=== PATIENT | female | born 1980 | race Caucasian/White ===

== ENCOUNTER 2019-09-12 15:59 | Outpatient (CLI) | payer OTHER, SELFPAY ==
--- NOTE | ~2019-09-12 | US_ITS ---
EXAMINATION: US pelvic complete w TV DATE: 09/12/2019 16:45 INDICATION: Abnormal uterine bleeding TECHNIQUE: Multiple transabdominal and endovaginal sonographic images of the pelvis were obtained. COMPARISON: None. FINDINGS: The uterus measures 10.2 x 4.4 x 4.9 cm. The endometrial complex measures 9 mm. The right o vary is not visualized however no right adnexal abnormality is seen. The left ovary measures 3.6 x 2. 4 x 3.5 cm. There is normal vascular flow in the left ovary. There is no free fluid in the pelvis. IMPRESSION: 1. No sonographic correlate for the patient's symptoms. Reviewed, dictated and finalized at location A.
== END 2019-09-12 16:00 | disposition home or self-care (01) ==
PROVIDERS: PCP Nurse Practitioner Adult Health; Visit Provider Nurse Practitioner
DX: N93.8 Other specified abnormal uterine and vaginal bleeding (principal)
CPT/HCPCS: 76830; 76856

== ENCOUNTER 2020-09-15 12:53 | Outpatient (CLI) | payer OTHER, SELFPAY ==
--- NOTE | ~2020-09-15 | US_ITS ---
EXAMINATION: US pelvic complete EXAM DATE: 09/15/2020 13:42 INDICATION: Abnormal uterine bleeding. TECHNIQUE: Pelvic transabdominal sonogram was performed. There are multiple grayscale and Doppler im ages available for interpretation. Comparison is made to prior examination from 09/12/2019. FINDINGS: Uterus measures 9.8 x 4.8 x 4.5 cm, and is morphologically normal. Endometrial stripe paramjit sures 11 mm, within normal limits. There is no free pelvic fluid. Right adnexa: The ovary measures 2.6 x 1.4 x 2.1 cm and is morphologically normal. Ovarian vascular f low confirmed. Left adnexa: The ovary measures 2.5 x 1.2 x 1.8 cm and is morphologically normal. Ovarian vascular fl ow confirmed. IMPRESSION: 1. Unremarkable pelvic ultrasound exam. Reviewed, dictated and finalized at location A.
== END 2020-09-15 12:54 ==
LOC: MICIMG 12:54
PROVIDERS: Visit Provider Nurse Practitioner
DX: N93.8 Other specified abnormal uterine and vaginal bleeding (principal)
CPT/HCPCS: 76856

== ENCOUNTER 2020-09-15 13:34 | Outpatient (CLI) | payer OTHER, SELFPAY ==
[2020-09-15 14:14] LABS: Hematocrit 41.5 % (37.0-47.0); Hemoglobin 13.5 g/dL (12.0-15.0); Mean Corpuscular HGB Conc 32.5 g/dl (32-36); Mean Corpuscular Hemoglobin 27.9 pg (26-34); Mean Corpuscular Volume 85.7 fl (80-100); Mean Platelet Volume 10.1 fl (7.4-10.4); Platelet Count Result 241 k/mm3 (150-375); Red Blood Count 4.84 M/mm3 (4.2-5.4); Red Cell Distribution Width 13.8 % (11.5-14.5); White Blood Count 5.9 K/mm3 (4.5-10.0)
[2020-09-15 14:30] LABS: Hemoglobin A1C 4.8 % (<5.7)
[2020-09-15 14:43] LABS: Beta HCG Quantitative < 2.39 mIU/ML
[2020-09-15 14:57] LABS: Thyroid Stimulating Hormone 0.896 uIU/mL (0.465-4.680)
[2020-09-15 17:48] LABS: Free T4 Free Thyroxine 1.18 ng/mL (0.78-2.19)
== END 2020-09-15 13:35 | disposition home or self-care (01) ==
PROVIDERS: Visit Provider Nurse Practitioner
DX: N93.8 Other specified abnormal uterine and vaginal bleeding (principal); N92.0 Excessive and frequent menstruation with regular cycle
CPT/HCPCS: 36415; 83036; 84439; 84443; 84702; 85027

== ENCOUNTER 2022-02-24 18:44 | Emergency (ER) | payer OTHER, SELFPAY ==
[2022-02-24 19:07] VITALS: BP 119/72; PULSE 77; RESP 18; TEMP 36; O2SAT 100
--- NOTE | 2022-02-24 19:41 | ED.URI ---
HPI - URI/Sore Throat General Chief Complaint: Upper Respiratory Infection Stated Complaint: Congestion,Cough Source: patient Mode of arrival: ambulatory History of Present Illness HPI Narrative: This is a 41-year-old female who presented to our urgent care with complaints cough with congestion and runny nose with greenish secretion, auditory wheezing that she has been experiencing since Monday. Patient notes that she has, contact with family members that has tested positive for RSV she also notes that her has a sinus infection. The patient denies SOB, CP, palpitation, extremity numbness, lightheadedness, dizziness, constipation, diarrhea, chills, or fever. Related Data Allergies Allergy/AdvReac Type Severity Reaction Status Date / Time No Known Allergies Allergy Verified 02/24/22 19:06 Review of Systems Review of Systems: A 14 organ system Review of Systems was performed and pertinent positives included in the HPI, otherwise remaining ROS is negative. Exam Narrative: GENERAL: This is a well-nourished, well-developed patient, in no apparent distress. HEAD: normocephalic, atraumatic. EYES: PERRL. Sclera clear/white. Vision is grossly intact. EARS: External ears normal, auditory canals clear and without drainage, TMs normal without perforation. Hearing grossly intact. NOSE: External nose normal with no obvious nasal discharge, nares without redness, no rhinorrhea. THROAT: Mucous membranes moist, posterior pharynx clear. NECK: Neck supple, non-tender without lymphadenopathy, masses or thyromegaly. CARDIOVASCULAR: Regular rate and rhythm without murmurs, gallops, or rubs. RESPIRATORY: Clear to auscultation. Breath sounds equal bilaterally. No wheezes, rales, or rhonchi. GASTROINTESTINAL: Abdomen soft, non-tender, nondistended. Bowel sounds are active. No hepato-splenomegaly, or palpable masses. No guarding. SKIN: warm, intact with no suspicious lesions or rash, good texture and turgor. NEURO: awake, alert, and oriented to person, place and time. There were no obvious focal neurologic abnormalities. EXTREMITIES: Normal range of motion. No edema. No calf tenderness. Course Course Emergency Course: Patient will be treated for viral illness she will go home with Tessalon Perles, Flonase, albuterol, and guaifenesin Level of Care: Express Care Visit Vital Signs Vital signs: Vital Signs Temperature 96.8 F L 02/24/22 19:07 Pulse Rate 77 02/24/22 19:07 Respiratory Rate 18 02/24/22 19:07 Blood Pressure 119/72 02/24/22 19:07 Pulse Oximetry 100 02/24/22 19:07 Oxygen Delivery Room Air 02/24/22 19:07 Temperature 96.8 F L 02/24/22 19:07 Pulse Rate 77 02/24/22 19:07 Respiratory Rate 18 02/24/22 19:07 Blood Pressure 119/72 02/24/22 19:07 Pulse Oximetry 100 02/24/22 19:07 Oxygen Delivery Room Air 02/24/22 19:07 MDM - URI/Sore Throat Differential Diagnosis Differential diagnosis: Likely sinusitis, viral infection and influenza Discharge Plan Discharge Clinical Impression: Viral infection Patient Disposition: Home, Self-Care Condition: Stable Instructions: Antibiotic Form, Viral Syndrome (ED) Additional Instructions: This is a viral illness that can last 5-12 days. Fever should start to resolve after 5 days. However your symptoms can last last up to 2 weeks. This will have to run its course. Treatment is aimed toward your specific symptoms How to prevent transmission of illness: Cover your mouth when you sneeze or cough. Cough into a tissue or the bend of your arm. If you use a tissue, throw it away immediately and wash your hands. -Clean shared items with a germ-killing immersion metal cleaner. Clean table surfaces, doorknobs, and light switches. Do not share towels, silverware, and dishes with people who are sick. Wash bed sheets, towels, silverware, and dishes with soap and water. -Wear a mask over your mouth and nose if you are sick. The face mask may help protect others from
== END 2022-02-24 19:42 | disposition home or self-care (01) ==
PROVIDERS: Emergency Provider Nurse Practitioner
DX: B34.9 Viral infection, unspecified (principal)
CPT/HCPCS: 99213; G0463

== ENCOUNTER 2022-12-14 07:45 | Outpatient (CLI) | payer OTHER, SELFPAY ==
--- NOTE | ~2022-12-14 | MM_ITS ---
EXAMINATION: MM screening jessica BI w alma delia HISTORY: Screening mammogram TECHNIQUE: Craniocaudal and mediolateral oblique 3-D tomosynthesis images were obtained and synthetic 2-D images were generated. CAD analysis was submitted and interpreted. COMPARISON: No prior mammogram is available for comparison at this institution. BREAST PARENCHYMAL COMPOSITION: There are scattered areas of fibroglandular density. FINDINGS: There is no evidence of suspicious mass, calcification, or architectural distortion to sugg est malignancy in either breast. There has been no suspicious interval change. IMPRESSION: 1. No mammographic evidence of malignancy. 2. Recommend routine screening mammography in one year. BI-RADS Category 1: Negative Reviewed, dictated and finalized at location A.
--- NOTE | ~2022-12-14 | XR_ITS ---
EXAMINATION: XR foot RT min 3V DATE: 12/14/2022 08:38 INDICATION: Right foot pain. TECHNIQUE: 4 views of right foot were obtained. COMPARISON: None. FINDINGS: Bone alignment is normal. No fracture. Joint spaces are normal. There is an enthesophyte at plantar aspect of calcaneal tuberosity. IMPRESSION: 1. No fracture. Reviewed, dictated and finalized at location E. IMPRESSION: 1. No fracture.
== END 2022-12-14 07:46 | disposition home or self-care (01) ==
PROVIDERS: PCP Family Medicine; Visit Provider Obstetrics & Gynecology Gynecology
DX: Z12.31 Encounter for screening mammogram for malignant neoplasm of breast (principal); M79.673 Pain in unspecified foot
CPT/HCPCS: 73630; 77063; 77067

== ENCOUNTER 2023-04-20 08:49 | Emergency (ER) | payer OTHER, SELFPAY ==
--- NOTE | 2023-04-20 08:59 | ED.GENADULT ---
HPI - General Adult General Chief complaint: Upper Respiratory Infection Stated complaint: Headache, Congestion, Earach, Jaw Pain, Lethargic Source: patient, RN notes reviewed and old records reviewed Mode of arrival: ambulatory Limitations: no limitations History of Present Illness HPI narrative: 42-year-old female presents to [facility] with complaints sinus drainage, sinus congestion, bilateral ear pressure, facial pain, and slight dry cough that started Monday. Patient has used Mucinex nasal spray 1 time with some relief. Patient denies chest pain, shortness of breath, dizziness, weakness, fever, myalgia. MD complaint: congestion Onset (ago): day(s) (2) Radiation: non-radiation Severity: mild Pain Consistency: intermittent Relieving factors: medication Exacerbating factors: none Associated symptoms: cough Treatments prior to arrival: other ( Mucinex nasal spray) Related Data Home Medications Medication Instructions Recorded Confirmed No Home Medications 04/20/23 04/20/23 Allergies Allergy/AdvReac Type Severity Reaction Status Date / Time No Known Allergies Allergy Verified 02/01/23 16:13 Review of Systems Constitutional: Constitutional: Reports no additional constitutional complaints, Denies body ache(s), Denies chills, Denies fatigue, Denies fever(s) and Denies headache(s) Eyes: Eyes: Reports no additional eye complaints and Denies blurry vision ENT: Reports system reviewed and no additional complaints, except as documented, Denies vertigo, Denies dizziness, Denies ear discharge, Reports otalgia, Denies facial pain, Denies headache(s), Reports nasal congestion, Reports nasal discharge, Denies sinus pain, Reports sinus pressure and Denies sore throat Cardiovascular: Cardiovascular: Reports no additional cardiovascular complaints, Denies chest pain, Denies chest pain at rest, Denies rapid heart rate and Denies dyspnea Respiratory: Respiratory: Reports no additional respiratory complaints, Denies chest congestion, Reports cough, Denies pain on inspiration, Denies pain with cough and Denies dyspnea Gastrointestinal: Gastrointestinal: Denies abdominal pain, Denies diarrhea, Denies nausea and Denies vomiting Integumentary/Breasts: Skin/Breast: Denies rash Neurologic: Reports system reviewed and no additional complaints, except as documented, Denies vertigo, Denies dizziness and Denies headache(s) Endocrine: Endocrine: Denies fatigue PMF Past Medical History Medical History Allergies Surgical History Surgical History History of endometrial ablation Family History Family History Father Hypertension Daughter Depression Anxiety Social History Social History Smoking status: Never smoker Second hand tobacco smoke exposure: No Alcohol intake: never Substance use: never Substance use type: does not use Lack of Transportation: No Lack of Food: Never True Current Housing: I Have Housing Concerned About Future Housing: No Difficulty Paying Gas/Electric Bills: No Difficulty Paying for Meds: No Currently Unemployed: No Education: Bachelor's Degree Difficulty w/ Childcare or Family Care: No Living arrangements: with family Occupation/Education: occupation Gender identity (if verbalized by the patient): Female Spiritual care concerns: No Agree to blood products: Yes Comments At the time of my signature, I reviewed and agree with the nursing past medical, surgical, social, and family history. There is no relevant family history pertinent to the patient complaint. Exam Const: General: cooperative, healthy appearing, no acute distress and well nourished Nutritional Appearance: well nourished Orientation/consciousness: patient oriented x3 Pate
[2023-04-20 09:01] VITALS: BP 127/75; PULSE 70; RESP 18; TEMP 36.5; O2SAT 98
== END 2023-04-20 09:24 | disposition home or self-care (01) ==
PROVIDERS: Emergency Provider Registered Nurse; PCP Family Medicine
DX: U07.1 COVID-19 (principal)
CPT/HCPCS: 87426; 87804; 99213; G0463

== ENCOUNTER 2024-04-23 11:07 | Emergency (ER) | payer OTHER, SELFPAY ==
--- NOTE | 2024-04-23 11:22 | ED_ITS ---
HPI - URI/Sore Throat General Chief Complaint: Upper Respiratory Infection Stated Complaint: SORE THROAT Time Seen by Provider: 04/23/24 12:26 Source: patient, RN notes reviewed and old records reviewed Mode of arrival: ambulatory Limitations: no limitations History of Present Illness HPI Narrative: patient who works as a teacher, many sick contacts at school, presents with complaints of body aches, headache, sore throat. She denies any fever, chills, sweats. She does report that she is more tired than normal. She is able to manage own secretions, no drooling or stridor. She has been taking [id number] medication for her symptoms with moderate relief Related Data Allergies Allergy/AdvReac Type Severity Reaction Status Date / Time No Known Allergies Allergy Verified 04/23/24 11:59 Review of Systems Review of Systems: All systems reviewed & are unremarkable except as noted in HPI and below Constitutional: Constitutional: Reports no additional constitutional complaints, Reports body ache(s), Reports fever(s), Reports headache(s) and Reports lethargy ENT: Reports system reviewed and no additional complaints, except as documented and Reports sore throat Cardiovascular: Cardiovascular: Reports no additional cardiovascular complaints Respiratory: Respiratory: Reports no additional respiratory complaints Gastrointestinal: Gastrointestinal: Reports no additional gastrointestinal complaints PMFSH Past Medical History Medical History Allergies Surgical History Surgical History History of endometrial ablation Family History Family History Father Hypertension Daughter Depression Anxiety Social History Social History Smoking status: Never smoker Second hand tobacco smoke exposure: No Alcohol intake: never Substance use: never Substance use type: does not use Lack of Transportation: No Lack of Food: Never True Current Housing: I Have Housing Concerned About Future Housing: No Difficulty Paying Gas/Electric Bills: No Difficulty Paying for Meds: No Currently Unemployed: No Education: Bachelor's Degree Difficulty w/ Childcare or Family Care: No Living arrangements: with family Occupation/Education: occupation Gender identity (if verbalized by the patient): Female Spiritual care concerns: No Agree to blood products: Yes Comments At the time of my signature, I reviewed and agree with the nursing past medical, surgical, social, and family history. There is no relevant family history pertinent to the patient complaint. Exam Const: General: cooperative, no acute distress, alert and awake Orientation/consciousness: oriented to person, oriented to place and oriented to time HENMT: Head: normal to inspection Ears: TM's normal bilaterally Mouth: Yes moist mucous membranes Throat: abnormal tonsil bilateral erythema, exudates and hypertrophy 2+ and posterior oropharynx abnormal erythema Resp: Effort & Inspection: normal respiratory effort and able to speak in complete sentences Auscultation: clear to auscultation bilaterally, no crackles, no rales, no rhonchi and no wheezes Cardio: Palpation: normal PMI Rate: regular rate Rhythm: regular rhythm Heart sounds: S1 normal heart sound present and S2 normal heart sound present Neuro: General: oriented to person, oriented to place and oriented to time Cranial nerves: Yes CN's II-XII intact bilaterally Psych: Appearance: grossly normal Thought process: Normal thought process present Insight: Good insight present (Psych) Judgement: Good judgement present (Psych) Course Course Level of Care: Express Care Visit Vital Signs Vital signs: Reviewed MDM - URI/Sore Throat MDM Narrative Medical decision making narrative: positive rapid strep. Patient nontoxic appearing, stable for discharge home on p.o. antibiotic therapy. Discharge instructions reviewed with patient, as well as provided in writing per nursing staff. The instructions also include specific and strict return/GO TO THE ER as well as f/u information. All questions have been answered, and the patient deny any further questions with discharge and discharge plan. Some parts of this dictation were generated by voice recognition software and may contain typographical and/or grammatical inaccuracies. Differential Diagnosis Differential diagnosis: Likely upper respiratory infection, otitis media, viral infection, influenza and pharyngitis Medical Records Attestation: I reviewed the patient's medical records. Lab Data Attestation: I reviewed the patient's lab results. Discharge Plan Discharge Clinical Impression: Strep pharyngitis Patient Disposition: Home, Self-Care Condition: Stable Instructions: Antibiotic Form, Pharyngitis (ED) Additional Instructions: Take medications as prescribed. Follow with primary care provider. Emergency department for new or worse symptoms Patient Language: Kinyarwanda Prescriptions: New penicillin V potassium 500 mg tablet 500 mg PO Q12H 10 Days Qty: 20 0RF No Action phentermine 30 mg capsule 30 mg PO DAILY Qty: 30 0RF Rx Instructions: must administer 2 hours after breakfast Follow-up/Referrals: Michelle Matos MD [Primary Care Provider] - 2 Weeks Stand Alone Forms: Work/School Release IP Time of Disposition: 12:31
[2024-04-23 11:23] VITALS: BP 113/75; PULSE 76; RESP 18; TEMP 36.4; O2SAT 99
[2024-04-23 11:26] LABS: EDSTREPNEGPOS1 Positive (Negative)
== END 2024-04-23 12:39 | disposition home or self-care (01) ==
PROVIDERS: Emergency Provider Nurse Practitioner Family; PCP Family Medicine
DX: J02.0 Streptococcal pharyngitis (principal)
CPT/HCPCS: 87880; 99213; G0463

== ENCOUNTER 2024-10-06 15:17 | Emergency (ER) | payer OTHER, SELFPAY ==
[2024-10-06 15:25] VITALS: BP 131/81; PULSE 76; RESP 18; TEMP 36.3; O2SAT 100
--- NOTE | 2024-10-06 16:34 | ED_ITS ---
HPI - Headache General Chief Complaint: Headache Stated Complaint: dizzy Patient presents to Express Care with complaints of nasal congestion, nasal drainage, headaches that have been present for about 3 weeks. Patient also noted symptoms of dizziness. Noted when lying in bed this is more prominent especially when rolling to left side does feel like the room is spinning and also causes nausea. No history of symptoms like this but does note a history of like symptoms. Patient has been using some [id number] medications for the allergy like symptoms with minimal relief. Denies chest pain, palpitations, shortness of breath, ear pain, sore throat, vomiting, or diarrhea. Related Data Allergies Allergy/AdvReac Type Severity Reaction Status Date / Time No Known Allergies Allergy Verified 10/06/24 15:43 Review of Systems Constitutional: Constitutional: Reports as per HPI, Denies chills, Reports fatigue, Denies fever(s) and Denies weakness Eyes: Eyes: Reports no additional eye complaints ENT: Reports as per HPI, Reports vertigo, Reports dizziness, Reports nasal congestion and Denies sore throat Cardiovascular: Cardiovascular: Reports as per HPI, Denies chest pain, Denies rapid heart rate, Denies radiating jaw, neck or arm pain and Denies slow heart rate Respiratory: Respiratory: Reports as per HPI, Denies chest congestion, Reports cough, Denies dyspnea and Denies wheezing Gastrointestinal: Gastrointestinal: Reports as per HPI, Denies diarrhea, Reports nausea and Denies vomiting Genitourinary: Genitourinary: Reports no additional female genitourinary complaints Musculoskeletal: Musculoskeletal: Reports no additional musculoskeletal complaints Integumentary/Breasts: Skin/Breast: Reports as per HPI, Denies erythema and Denies rash Neurologic: Reports as per HPI, Reports vertigo, Reports dizziness, Reports headache(s), Denies focal weakness, Denies numbness and Denies weakness Psychiatric: Psychiatric: Reports no additional psychiatric complaints Endocrine: Endocrine: Reports no additional endocrine complaints Hematologic/Lymphatic: Hematologic/Lymphatic: Reports no additional hematologic/lymphatic complaints Allergic/Immunologic: Allergic/Immunologic: Reports as per HPI Comments: Seasonal allergies PMFSH Past Medical History Medical History Allergies Surgical History Surgical History History of endometrial ablation Family History Family History Father Hypertension Daughter Depression Anxiety Social History Social History Smoking status: Never smoker Second hand tobacco smoke exposure: No Alcohol intake: never Substance use: never Substance use type: does not use Lack of Transportation: No Lack of Food: Never True Current Housing: I Have Housing Concerned About Future Housing: No Difficulty Paying Gas/Electric Bills: No Difficulty Paying for Meds: No Currently Unemployed: No Education: Bachelor's Degree Difficulty w/ Childcare or Family Care: No Living arrangements: with family Occupation/Education: occupation Gender identity (if verbalized by the patient): Female Spiritual care concerns: No Agree to blood products: Yes Exam Const: General: healthy appearing and no acute distress Nutritional Appearance: well nourished Orientation/consciousness: patient oriented x3 Limitations: no limitations HENMT: Head: normal to inspection Ears: external ears normal and TM abnormal bulging, dull, erythematous and with fluid behind the TM Face/Nose/Sinus: Normal external nose present Face and sinus: normal facial exam and sinus tenderness ethmoid and maxillary Mouth: Yes Normal oral and palatal mucosa present, Yes lip normal and Yes moist mucous membranes abnormal Throat: posterior oropharynx abnormal (erythema noted) Eyes: Conjunctivae: conjunctivae normal Pupils: Equal, round and reactive pupils present EOM: EOMs intact bilaterally Direct Ophthalmoscopy: no photophobia Other: some minimal dizziness noted with EOM Neck: Neck: no lymphadenopathy Resp: Effort & Inspection: normal respiratory effort Auscultation: clear to auscultation bilaterally Cardio: Rate: regular rate Rhythm: regular rhythm Skin: General skin exam: normal color Rashes: no rashes Wounds: no wounds Neuro: General: patient oriented x3, no meningeal signs, no focal motor deficits and CN's II-XI intact bilaterally Speech: normal speech Gait exam (Neuro): Normal gait present Psych: Mental Status: mental status grossly normal Affect: normal affect Attitude: cooperative Course Course Level of Care: Express Care Visit Vital Signs Vital signs: Vital Signs Temperature 97.3 F L 10/06/24 15:25 Pulse Rate 76 10/06/24 15:25 Respiratory Rate 18 10/06/24 15:25 Blood Pressure 131/81 10/06/24 15:25 Pulse Oximetry 100 10/06/24 15:25 Oxygen Delivery Room Air 10/06/24 15:25 Temperature 97.3 F L 10/06/24 15:25 Pulse Rate 76 10/06/24 15:25 Respiratory Rate 18 10/06/24 15:25 Blood Pressure 131/81 10/06/24 15:25 Pulse Oximetry 100 10/06/24 15:25 Oxygen Delivery Room Air 10/06/24 15:25 MDM - Headache MDM Narrative Medical decision making narrative: given length times sinus infection likely to cause benign vertigo. Educated patient on Ken maneuvers in clinic and medications to take for symptoms. Educated patient on signs and symptoms that would need ER follow-up. Discharge instructions reviewed with patient, as well as provided in writing per nursing staff. The instructions also include specific and strict return/GO TO THE ER as well as f/u information. All questions have been answered, and the patient deny any further questions with discharge and discharge plan. Differential Diagnosis Differential diagnosis: Likely migraine, tension headache, headache, meningitis, sinusitis and postconcussion syndrome Medical Records Attestation: I reviewed the patient's medical records. Discharge Plan Discharge Clinical Impression: Sinusitis, Vertigo Patient Disposition: Home Condition: Stable Instructions: Antibiotic Form, Sinusitis (ED), Benign Paroxysmal Positional Vertigo (ED) Additional Instructions: Recommended taking the meclizine as needed 3 times a day to help with the dizziness. Use of Flonase daily to help with sinus congestion and ear pressure take the antibiotics until they are gone through may use Mucinex and Sudafed to help with other symptoms if you notice significant increase in dizziness, headache, vision changes, or symptoms are not improving follow-up with primary care Patient Language: Citizen Of [place] Prescriptions: New amoxicillin-pot clavulanate 875-125 mg tablet 1 tablet PO Q12H Qty: 20 0RF meclizine 25 mg tablet 25 mg PO TID Qty: 30 0RF Follow-up/Referrals: Michelle Matos MD [Primary Care Provider] - Time of Disposition: 16:36
== END 2024-10-06 16:38 | disposition home or self-care (01) ==
PROVIDERS: Emergency Provider Nurse Practitioner Family; PCP Family Medicine
DX: J32.9 Chronic sinusitis, unspecified (principal); R42 Dizziness and giddiness
CPT/HCPCS: 99213; G0463